=== PATIENT | female | born 1990 | race Two or more races ===

== ENCOUNTER → 2024-06-14 | Outpatient (CLI) | payer BC, SELFPAY ==
[2024-06-14 09:51] LABS: Collection Type, Urine Clean Catch
[2024-06-14 10:12] LABS: Bilirubin,Urine Negative (Negative); Blood,Urine Trace (Negative); Clarity,Urine Clear (Clear/Hazy); Color,Urine Lt-Yellow (Lt Yel-Yel); Culture Indicated,Urine Not Indicated; Glucose, Urine Negative (Negative); Ketones,Urine Negative (Negative); Leukocyte Esterase,Urine Negative (Negative); Nitrite,Urine Negative (Negative); Protein,Urine Negative (Neg - Trace); RBC,Urine 2 /hpf (0-3); Specific Gravity,Urine 1.027 (1.001-1.035); Squamous Epithelial Cell,Urine 1 /hpf (0-5); Urobilinogen,Urine Negative mg/dL (0.0-1.0); WBC,Urine 1 /hpf (0-5)
[2024-06-14 10:14] LABS: Basophils # (Auto) 0.1 Thou/mm3 (0.0-0.2); Basophils % (Auto) 1 % (0-2.5); Eosinophils # (Auto) 0.3 Thou/mm3 (0.0-0.5); Eosinophils % (Auto) 5 % (0-10); Hematocrit 40.1 % (36.0-46.0); Hemoglobin 13.5 g/dL (12.0-16.0); Immature Granulocytes % (Auto) 0 % (0-0); Immature Granulocytes Auto 0.02 Thou/mm3 (0.00-0.00); Lymphocytes # (Auto) 1.7 Thou/mm3 (1.0-4.8); Lymphocytes % (Auto) 31 % (10-50); Mean Corpuscular HGB Conc 33.7 g/dl (31.0-37.0); Mean Corpuscular Hemoglobin 29.4 pg (25.0-35.0); Mean Corpuscular Volume 87 fL (80-100); Monocytes # (Auto) 0.5 Thou/mm3 (0.0-0.8); Monocytes % (Auto) 9 % (0-12); Neutrophils % (Auto) 54 % (37-80); Nucleated Red Blood Cell % 0 /100 WBC (0); Platelet Count 298 Thou/mm3 (140-440); Red Blood Count 4.59 Miln/mm3 (4.00-5.20); White Blood Count 5.6 Thou/mm3 (3.6-11.0)
[2024-06-14 10:26] LABS: Alanine Aminotransferase 178 U/L (10-49); Albumin, Serum 4.4 gm/dL (3.5-5.0); Albumin/Globulin Ratio 2.1 (1.2-2.2); Alkaline Phosphatase 75 U/L (46-116); Anion Gap 6 (7-16); Aspartate Amino Transferase 103 U/L (0-34); BUN/Creatinine Ratio 20 Ratio (12-20); Bilirubin,Total 0.3 mg/dL (0.3-1.2); Blood Urea Nitrogen 14 mg/dL (9-23); Calcium 9.9 mg/dL (8.3-10.6); Calcium (Corrected) 9.9 mg/dL (8.5-10.1); Carbon Dioxide 28.5 mMol/L (20.0-31.0); Chloride 106 mMol/L (98-107); Creatinine (Component) 0.7 mg/dL (0.6-1.3); Free T4 (Free Thyroxine) 1.05 ng/dL (0.89-1.76); Globulin 2.1 gm/dL (2.3-3.5); Glucose 95 mg/dL (74-106); Osmolality,Calculated 279 (275-295); Phosphorous 2.9 mg/dL (2.4-5.1); Potassium 4.2 mMol/L (3.4-5.1); Sodium 140 mMol/L (136-145); Thyroid Stimulating Hormone 0.89 uIU/mL (0.55-4.78); Total Protein 6.5 gm/dL (5.7-8.2); eGFR > 60 See Note
== END | disposition home or self-care (01) ==
LOC: COPL 09:28
PROVIDERS: PCP Internal Medicine; Referring Provider Internal Medicine; Visit Provider Internal Medicine
DX: Z00.00 Encounter for general adult medical examination without abnormal findings (principal)
CPT/HCPCS: 36415; 80053; 81001; 84100; 84439; 84443; 85025

== ENCOUNTER → 2024-06-26 | Outpatient (CLI) | payer BC, SELFPAY ==
[2024-06-26 11:56] LABS: Hepatitis A Antibody IgM Non Reactive (Non React); Hepatitis B Core Antibody IgM Non Reactive (Non React); Hepatitis B Surface Antigen Non Reactive (Non React); Hepatitis C Antibody Non Reactive (Non React)
== END | disposition home or self-care (01) ==
LOC: COPL 09:03
PROVIDERS: PCP Internal Medicine; Referring Provider Internal Medicine; Visit Provider Internal Medicine
DX: R74.01 Elevation of levels of liver transaminase levels (principal)
CPT/HCPCS: 36415; 80074

== ENCOUNTER → 2024-10-01 | Outpatient (CLI) | payer BC, SELFPAY ==
[2024-10-01 11:11] LABS: Alanine Aminotransferase 31 U/L (10-49); Albumin, Serum 4.3 gm/dL (3.5-5.0); Alkaline Phosphatase 72 U/L (46-116); Aspartate Amino Transferase 18 U/L (0-34); Bilirubin,Direct < 0.1 mg/dL (0.0-0.3); Bilirubin,Total 0.2 mg/dL (0.3-1.2); Total Protein 6.5 gm/dL (5.7-8.2)
== END | disposition home or self-care (01) ==
PROVIDERS: PCP Internal Medicine; Referring Provider Internal Medicine; Visit Provider Internal Medicine
DX: E78.5 Hyperlipidemia, unspecified (principal)
CPT/HCPCS: 36415; 80076

== ENCOUNTER → 2024-11-07 | Outpatient (CLI) | payer BC, SELFPAY ==
[2024-11-09 11:20] LABS: BVAG Candida Negative (Negative); Bacterial Vaginosis Markers Negative (Negative); Candida glabrata Negative (Negative); Candida krusei PCR Negative (Negative); Trichomonas Negative (Negative)
== END | disposition home or self-care (01) ==
LOC: SLDO 15:29
PROVIDERS: PCP Physician Assistant Medical; Referring Provider Physician Assistant Medical; Visit Provider Physician Assistant Medical
DX: A59.01 Trichomonal vulvovaginitis (principal); B37.89 Other sites of candidiasis; N76.0 Acute vaginitis
CPT/HCPCS: 81514

== ENCOUNTER → 2024-11-21 | Outpatient (CLI) | payer BC, SELFPAY ==
[2024-11-21 14:03] LABS: Collection Type, Urine Clean Catch
[2024-11-21 15:41] LABS: Amphetamine/Methamp Scrn,U Negative (Negative); Barbiturate Screen,Urine Negative (Negative); Benzodiazepines Screen,Urine Negative (Negative); Benzoylecgonine Screen, Ur Negative (Negative); Fentanyl Screen,Urine Negative (Negative); Opiate Screen,Urine Negative (Negative); THC Screen,Urine Negative (Negative)
[2024-11-21 15:45] LABS: Bacteria,Urine Rare; Bilirubin,Urine Negative (Negative); Blood,Urine Negative (Negative); Clarity,Urine Clear (Clear/Hazy); Color,Urine Yellow (Lt Yel-Yel); Glucose, Urine Negative (Negative); Ketones,Urine Trace (Negative); Leukocyte Esterase,Urine Negative (Negative); Nitrite,Urine Negative (Negative); PH,Urine 5.5 (5.0-7.0); Protein,Urine Trace (Neg - Trace); RBC,Urine 1 /hpf (0-3); Specific Gravity,Urine 1.021 (1.001-1.035); Squamous Epithelial Cell,Urine 1 /hpf (0-5); Urobilinogen,Urine Negative mg/dL (0.0-1.0); WBC,Urine 2 /hpf (0-5)
== END | disposition home or self-care (01) ==
LOC: SLDO 13:45
PROVIDERS: Referring Provider Specialist; Visit Provider Specialist
DX: Z34.81 Encounter for supervision of other normal pregnancy, first trimester (principal)
CPT/HCPCS: 80307; 81001; 87086

== ENCOUNTER → 2024-11-21 | Outpatient (CLI) | payer BC, SELFPAY ==
[2024-11-21 11:21] LABS: Misc Send Out* See Sep Rpt; Quantiferon-TB* See Sep Rpt
[2024-11-21 12:17] LABS: Basophils # (Auto) 0.1 Thou/mm3 (0.0-0.2); Basophils % (Auto) 1 % (0-2.5); Eosinophils # (Auto) 0.2 Thou/mm3 (0.0-0.5); Eosinophils % (Auto) 2 % (0-10); Hematocrit 37.8 % (36.0-46.0); Hemoglobin 12.9 g/dL (12.0-16.0); Immature Granulocytes % (Auto) 0 % (0-0); Immature Granulocytes Auto 0.02 Thou/mm3 (0.00-0.00); Lymphocytes # (Auto) 1.6 Thou/mm3 (1.0-4.8); Lymphocytes % (Auto) 17 % (10-50); Mean Corpuscular HGB Conc 34.1 g/dl (31.0-37.0); Mean Corpuscular Hemoglobin 28.9 pg (25.0-35.0); Mean Corpuscular Volume 85 fL (80-100); Monocytes # (Auto) 0.5 Thou/mm3 (0.0-0.8); Monocytes % (Auto) 6 % (0-12); Neutrophils # (Auto) 6.7 Thou/mm3 (1.8-7.7); Neutrophils % (Auto) 74 % (37-80); Nucleated Red Blood Cell % 0 /100 WBC (0); Platelet Count 288 Thou/mm3 (140-440); RDW Standard Deviation 41.2 fL (36.4-46.3); Red Blood Count 4.47 Miln/mm3 (4.00-5.20); White Blood Count 9.1 Thou/mm3 (3.6-11.0)
[2024-11-21 12:38] LABS: Glucose Estimated Average 88 mg/dL (80-131); Hemoglobin A1C 4.7 % Hgb (4.8-6.0)
[2024-11-21 12:55] LABS: Hepatitis B Surface Antigen Non Reactive (Non React); Rubella, IgG Antibody Reactive (Immune)
[2024-11-21 13:03] LABS: Alanine Aminotransferase 37 U/L (10-49); Albumin, Serum 4.4 gm/dL (3.5-5.0); Albumin/Globulin Ratio 2.1 (1.2-2.2); Alkaline Phosphatase 65 U/L (46-116); Amylase 78 U/L (30-118); Anion Gap 9 (7-16); Aspartate Amino Transferase 27 U/L (0-34); BUN/Creatinine Ratio 11 Ratio (12-20); Bilirubin,Total 0.4 mg/dL (0.3-1.2); Blood Urea Nitrogen 8 mg/dL (9-23); Calcium 9.4 mg/dL (8.3-10.6); Calcium (Corrected) 9.4 mg/dL (8.5-10.1); Carbon Dioxide 24.9 mMol/L (20.0-31.0); Chloride 105 mMol/L (98-107); Creatinine (Component) 0.7 mg/dL (0.6-1.3); Globulin 2.1 gm/dL (2.3-3.5); Glucose 84 mg/dL (74-106); Lipase 34 U/L (12-53); Osmolality,Calculated 274 (275-295); Potassium 4.4 mMol/L (3.4-5.1); Sodium 139 mMol/L (136-145); Total Protein 6.5 gm/dL (5.7-8.2); eGFR > 60 See Note
[2024-11-21 13:35] LABS: Beta HCG,Quantitative 134534 mIU/mL (<5.0)
[2024-11-21 14:35] LABS: HIV (1&2) Antibody Rapid Non-Reactive
[2024-11-25 13:47] LABS: Cardiolipin Ab (IgA) <2.0 APL-U/mL; Cardiolipin Ab (IgG) <2.0 GPL-U/mL; Chenodeoxycholic Acid* <0.5 umol/L (< OR = 3.9); Cholic Acid* <0.5 umol/L (< OR = 2.8); Deoxycholic Acid* <0.5 umol/L (< OR = 2.3); HCV RNA, PCR <15 NOT DETECTED IU/mL
[2024-11-26 06:35] LABS: B2-Glycoprotein I Ab IgA <2.0 U/mL; B2-Glycoprotein I Ab IgG <2.0 U/mL; B2-Glycoprotein I Ab IgM <2.0 U/mL; Cardiolipin Ab (IgM) <2.0 MPL-U/mL; HCV RNA, PCR Log IU <1.18 NOT DETECTED Log IU/mL; HIV Ag/Ab, 4th Gen NON-REACTIVE; Total Bile Acids <1.5 umol/L (< OR = 8.3)
== END | disposition home or self-care (01) ==
LOC: COPL 10:52
PROVIDERS: PCP Internal Medicine; Referring Provider Specialist; Visit Provider Specialist
DX: Z34.81 Encounter for supervision of other normal pregnancy, first trimester (principal); R10.13 Epigastric pain
CPT/HCPCS: 36415; 80053; 82150; 83013; 83014; 83036; 83690; 83789; 84702; 85025; 85613; 85730; 86146; 86147; 86480; 86703; 86762; 86850; 86900; 86901; 87340; 87389; 87522

== ENCOUNTER → 2025-01-02 | Outpatient (CLI) | payer BC, SELFPAY ==
--- NOTE | 2025-01-02 09:59 | XR_ITS ---
Examination: Abdomen sonogram, Limited Date and time of exam: January 03, 2000 2510 0 6:00 AM INDICATIONS: Right upper abdominal pain beginning one month ago Technique: Real-time jorge scale transabdominal sonographic images of the upper abdomen obtained. Findings: Normal gallbladder Normal common bile duct 0.3 cm Pancreatic head 2.0 cm Liver 14.2 cm no liver lesions Normal hepatopedal portal venous flow Patent IVC IMPRESSION: Negative study
== END | disposition home or self-care (01) ==
PROVIDERS: PCP Internal Medicine; Referring Provider Specialist; Visit Provider Specialist
DX: R10.13 Epigastric pain (principal)
CPT/HCPCS: 76705

== ENCOUNTER → 2025-02-13 | Outpatient (CLI) | payer BC, SELFPAY | END | disposition home or self-care (01) | LOC: SLDO 14:31 | PROVIDERS: Referring Provider Physician Assistant Medical; Visit Provider Physician Assistant Medical | DX: Z34.82 Encounter for supervision of other normal pregnancy, second trimester (principal) | CPT/HCPCS: 87086 ==

== ENCOUNTER → 2025-03-14 | Outpatient (CLI) | payer BC, SELFPAY | END | disposition home or self-care (01) | LOC: SLDO 14:58 | PROVIDERS: Referring Provider Physician Assistant Medical; Visit Provider Physician Assistant Medical | DX: Z34.82 Encounter for supervision of other normal pregnancy, second trimester (principal) | CPT/HCPCS: 87086 ==

== ENCOUNTER → 2025-04-11 | Outpatient (CLI) | payer BC, SELFPAY ==
[2025-04-11 17:36] LABS: Glucose,1 Hour PP 50gm Dose 114 mg/dL (80-140)
== END | disposition home or self-care (01) ==
LOC: SLDO 15:08
PROVIDERS: PCP Physician Assistant Medical; Referring Provider Specialist; Visit Provider Specialist
DX: Z34.82 Encounter for supervision of other normal pregnancy, second trimester (principal)
CPT/HCPCS: 36415; 82950

== ENCOUNTER → 2025-05-02 | Outpatient (CLI) | payer BC, SELFPAY ==
[2025-05-02 17:01] LABS: Basophils # (Auto) 0.0 Thou/mm3 (0.0-0.2); Basophils % (Auto) 0 % (0-2.5); Eosinophils # (Auto) 0.1 Thou/mm3 (0.0-0.5); Eosinophils % (Auto) 1 % (0-10); Hematocrit 35.7 % (36.0-46.0); Hemoglobin 11.7 g/dL (12.0-16.0); Immature Granulocytes Auto 0.07 Thou/mm3 (0.00-0.00); Lymphocytes # (Auto) 1.4 Thou/mm3 (1.0-4.8); Lymphocytes % (Auto) 14 % (10-50); Mean Corpuscular HGB Conc 32.8 g/dl (31.0-37.0); Mean Corpuscular Hemoglobin 28.7 pg (25.0-35.0); Mean Corpuscular Volume 88 fL (80-100); Monocytes # (Auto) 0.6 Thou/mm3 (0.0-0.8); Monocytes % (Auto) 6 % (0-12); Neutrophils # (Auto) 8.3 Thou/mm3 (1.8-7.7); Neutrophils % (Auto) 79 % (37-80); Nucleated Red Blood Cell # 0.00 Thou/mm3 (0.00-0.00); Nucleated Red Blood Cell % 0 /100 WBC (0); Platelet Count 242 Thou/mm3 (140-440); RDW Standard Deviation 42.5 fL (36.4-46.3); Red Blood Count 4.07 Miln/mm3 (4.00-5.20); White Blood Count 10.5 Thou/mm3 (3.6-11.0)
[2025-05-02 17:24] LABS: Syphilis Nonreactive (Nonreactive)
== END | disposition home or self-care (01) ==
LOC: SLDO 15:24
PROVIDERS: Referring Provider Physician Assistant Medical; Visit Provider Physician Assistant Medical
DX: Z34.83 Encounter for supervision of other normal pregnancy, third trimester (principal)
CPT/HCPCS: 36415; 85025; 86780

== ENCOUNTER 2025-06-09 11:34 | Observation (INO) | payer BC, SELFPAY ==
[2025-06-09] VITALS (26 sets, daily range): BP systolic 129–134; BP diastolic 73–78; PULSE 72–91; RESP 18–99; TEMP 36.7; O2SAT 98–100; BMI 32.5
[2025-06-09] MEDS: RINGERS LACTATED 1000 ML 1,000 ML 999 ML IV (12:27)
[2025-06-09 12:50] LABS: Collection Type, Urine Clean Catch
[2025-06-09 13:02] LABS: Bacteria,Urine Rare; Bilirubin,Urine Negative (Negative); Blood,Urine Negative (Negative); Clarity,Urine Clear (Clear/Hazy); Color,Urine Lt-Yellow (Lt Yel-Yel); Glucose, Urine Negative (Negative); Ketones,Urine Negative (Negative); Leukocyte Esterase,Urine Negative (Negative); Nitrite,Urine Negative (Negative); PH,Urine 6.5 (5.0-7.0); Protein,Urine Negative (Neg - Trace); RBC,Urine 4 /hpf (0-3); Specific Gravity,Urine 1.025 (1.001-1.035); Squamous Epithelial Cell,Urine 1 /hpf (0-5); Urobilinogen,Urine Negative mg/dL (0.0-1.0); WBC,Urine 1 /hpf (0-5)
[2025-06-09 13:05] LABS: Basophils # (Auto) 0.0 Thou/mm3 (0.0-0.2); Basophils % (Auto) 0 % (0-2.5); Mean Corpuscular HGB Conc 33.5 g/dl (31.0-37.0); Nucleated Red Blood Cell # 0.00 Thou/mm3 (0.00-0.00); Nucleated Red Blood Cell % 0 /100 WBC (0); RDW Standard Deviation 38.0 fL (36.4-46.3)
[2025-06-09 13:26] LABS: Alanine Aminotransferase 8 U/L (10-49); Albumin, Serum 4.3 gm/dL (3.5-5.0); Albumin/Globulin Ratio 2.3 (1.2-2.2); Alkaline Phosphatase 156 U/L (46-116); Anion Gap 13 (7-16); Aspartate Amino Transferase 16 U/L (0-34); BUN/Creatinine Ratio 12 Ratio (12-20); Bilirubin,Total 0.2 mg/dL (0.3-1.2); Blood Urea Nitrogen 7 mg/dL (9-23); Calcium 8.8 mg/dL (8.3-10.6); Calcium (Corrected) 8.8 mg/dL (8.5-10.1); Carbon Dioxide 21.5 mMol/L (20.0-31.0); Chloride 106 mMol/L (98-107); Creatinine (Component) 0.6 mg/dL (0.6-1.3); Estimated Creatinine Clearance 118.8 mL/min (>60); Globulin 1.9 gm/dL (2.3-3.5); Glucose 81 mg/dL (74-106); LDH (Lactate Dehydrogenase) 173 U/L (120-246); Osmolality,Calculated 276 (275-295); Potassium 3.8 mMol/L (3.4-5.1); Sodium 140 mMol/L (136-145); Total Protein 6.2 gm/dL (5.7-8.2); Uric Acid 5.2 mg/dL (3.1-7.8); eGFR > 60 See Note
[2025-06-09 13:29] LABS: Creatinine,Random Urine 110 mg/dL (30-125); Protein Total, Random Urine 17 mg/dL (1-14)
[2025-06-09 13:30] LABS: Eosinophils # (Auto) 0.1 Thou/mm3 (0.0-0.5); Eosinophils % (Auto) 1 % (0-10); Hematocrit 35.5 % (36.0-46.0); Hemoglobin 11.9 g/dL (12.0-16.0); Immature Granulocytes Auto 0.06 Thou/mm3 (0.00-0.00); Lymphocytes # (Auto) 2.0 Thou/mm3 (1.0-4.8); Lymphocytes % (Auto) 17 % (10-50); Mean Corpuscular Hemoglobin 27.7 pg (25.0-35.0); Mean Corpuscular Volume 83 fL (80-100); Monocytes # (Auto) 0.8 Thou/mm3 (0.0-0.8); Monocytes % (Auto) 7 % (0-12); Neutrophils # (Auto) 9.0 Thou/mm3 (1.8-7.7); Neutrophils % (Auto) 75 % (37-80); Platelet Count 230 Thou/mm3 (140-440); Red Blood Count 4.30 Miln/mm3 (4.00-5.20); White Blood Count 12.1 Thou/mm3 (3.6-11.0)
[2025-06-09 13:37] LABS: INR 0.9 (0.9-1.3); Partial Thromboplastin Time 23.7 Seconds (22.0-36.0); Prothrombin Time 9.3 Seconds (9.0-12.2)
--- NOTE | 2025-06-09 13:42 | ESHP_ITS ---
RE: NARAYAN MILTON : 1990 DATE OF ADMISSION: 06/09/2025 HISTORY OF PRESENT ILLNESS: This is a 34-year-old 2, para 1-0-0-1 with due date of 07/07 with intrauterine at 36 weeks and 0 days who presents for contractions, which were seen on her non-stress test in the office today. The patient denies any headache or change in vision. She denies any right upper quadrant pain. She reports normal movement. She denies any leaking or bleeding. Contractions are seen on the non-stress test about every 3-5 minutes. She was referred to maternal unit to evaluate whether she is in early labor or false labor. She has a previous delivery and elects repeat delivery. Her prior was complicated by HELLP syndrome at 35 weeks gestation. This current has been uncomplicated. She has been on aspirin, but she has had normal blood pressures. She denies any headache, change of vision, or right upper quadrant pain. A maternal- medicine ultrasound on 05/16 showed normal anatomy, no evidence of placenta accreta spectrum, and an adequate interval growth with growth at the 47th percentile. ALLERGIES: NO KNOWN DRUG ALLERGIES. MEDICATIONS: 1. multivitamin 1 p.o. daily. 2. Aspirin 81 mg 1 p.o. daily. 3. Omeprazole 20 mg 1 p.o. daily. PAST MEDICAL HISTORY: Medullary sponge kidney, hiatal hernia with reflux, gastroesophageal reflux disease, HELLP syndrome at 35 weeks gestation in her first , advanced maternal age, and migraine headaches. SOCIAL HISTORY: She is . She denies any alcohol, drug use, or smoking. FAMILY HISTORY: Colon cancer, diabetes, hypertension, and stroke. OBSTETRIC HISTORY: 02/2017, 35 weeks, delivery, 4 pound 3 ounce male, complicated by HELLP syndrome and severe preeclampsia. PAST SURGICAL HISTORY: 2017 delivery. REVIEW OF SYSTEMS: Denies any chest pain, palpitations, cough, fever, shortness of breath, flank pain, or lower extremity pain. PHYSICAL EXAMINATION: VITAL SIGNS: Blood pressure 119/77, heart rate 88, respiration 18, temperature 98.6, weight 160 pounds. HEENT: Oropharynx and sclerae are clear. LUNGS: Clear to auscultation bilaterally. HEART: Regular rate and rhythm. ABDOMEN: Gravid, consistent with estimated weight 6 pounds. PELVIC: See RN notes. EXTREMITIES: Nontender. SKIN: No gross rashes or lesions. NEUROLOGIC: No focal deficit. ASSESSMENT: Intrauterine at 36 weeks, previous delivery, elects repeat delivery, early labor versus false labor. PLAN: IV hydration, PIH labs, monitor for cervical change. If progresses or has persistent contractions, will plan delivery. If not, she will discharge home with plan for betamethasone today and tomorrow. DT: 13::27 TT: 13:42:00 Ref: [id number] - TID: [id number]
[2025-06-09] MEDS: BETAMET ACET/BETAMET NA PH (Celestone) 6 MG/ML VIAL 12 MG IM (13:54)
[2025-06-09 13:55] LABS: Fibrinogen 637 mg/dL (175-375)
== END 2025-06-09 14:07 | disposition home or self-care (01) ==
PROVIDERS: Admitting Provider Specialist; Visit Provider Specialist
DX: O47.03 False labor before 37 completed weeks of gestation, third trimester (principal); O34.219 Maternal care for unspecified type scar from previous cesarean delivery; O09.523 Supervision of elderly multigravida, third trimester; Z3A.36 36 weeks gestation of pregnancy
CPT/HCPCS: 36415; 59025; 59899; 80053; 81001; 82570; 83615; 84156; 84550; 85025; 85384; 85610; 85730; 86850; 86900; 86901; J0702; J7120

== ENCOUNTER → 2025-06-09 | Outpatient (CLI) | payer BC, SELFPAY ==
[2025-06-10 10:44] LABS: BVAG Candida Negative (Negative); Bacterial Vaginosis Markers Negative (Negative); Candida glabrata Negative (Negative); Candida krusei PCR Negative (Negative); Trichomonas Negative (Negative)
== END | disposition home or self-care (01) ==
LOC: SLDO 15:22
PROVIDERS: Referring Provider Physician Assistant Medical; Visit Provider Physician Assistant Medical
DX: Z34.83 Encounter for supervision of other normal pregnancy, third trimester (principal)
CPT/HCPCS: 81514

== ENCOUNTER 2025-06-10 13:45 | Outpatient (CLI) | payer BC, SELFPAY ==
[2025-06-10 13:53] VITALS: BP 0/0
[2025-06-10 13:54] VITALS: BP 125/75; PULSE 96; RESP 16; TEMP 36.7; O2SAT 99
[2025-06-10 13:57] VITALS: BP 125/75; PULSE 96; RESP 16; RESP 99; TEMP 36.7; BMI 32.8
[2025-06-10] MEDS: BETAMET ACET/BETAMET NA PH (Celestone) 6 MG/ML VIAL 12 MG IM (14:35)
== END 2025-06-10 14:40 | disposition home or self-care (01) ==
LOC: S4S1 13:46 → S4SX 13:46
PROVIDERS: Referring Provider Specialist; Visit Provider Specialist
DX: Z34.83 Encounter for supervision of other normal pregnancy, third trimester (principal); Z36.9 Encounter for antenatal screening, unspecified; Z3A.36 36 weeks gestation of pregnancy
CPT/HCPCS: 59025; 96372; J0702

== ENCOUNTER → 2025-06-16 | Outpatient (CLI) | payer BC, SELFPAY | END | disposition home or self-care (01) | LOC: SLDO 14:12 | PROVIDERS: Referring Provider Physician Assistant Medical; Visit Provider Physician Assistant Medical | DX: Z34.83 Encounter for supervision of other normal pregnancy, third trimester (principal) | CPT/HCPCS: 87086 ==

== ENCOUNTER 2025-06-18 13:20 | Outpatient (AMBR) | payer BC, SELFPAY ==
--- NOTE | 2025-06-18 14:23 | LAC.VISIT ---
Assessment LAC Intervention Discharge Follow Up Appointment Date and Time: as needed LAC Education Education : Education Topic Comment: Saw patient today with questions regarding flange sizes for her pump. she is an experienced breast pumper, she exclusively pumped with her last baby due to baby being in the NICU for 10 days. She was planning on exclusively pumping for this baby as well. after some discussion found out that it was due to wanting to have dads help in feeding baby. explained that this is perfectly doable even if she is directly. stated that doing exclusive bf in the first few weeks would ensure a better milk supply and then starting to do pumping around week 2 or 3 would be overall better for baby and her. she stated she would like to do that. Discussed plan to start off with exclusive bf and then start pumping down the road. Discussed food, increasing milk supply, medications and mothers milk, flange sizes, electric pump and pumping schedule, in hospital, colostral phase. OP DC Assessment Discharge Follow Up Appointment Date and Time: as needed Visit Complete?: Yes
== END 2025-07-13 23:59 | disposition home or self-care (01) ==
LOC: HODLAC 13:20
DX: Z39.1 Encounter for care and examination of lactating mother (principal)

== ENCOUNTER 2025-06-21 23:10 | Inpatient (IN) | payer BC, SELFPAY ==
[2025-06-21] VITALS (10 sets, daily range): BP systolic 136–147; BP diastolic 87–88; PULSE 79–93; RESP 16–97; TEMP 37.2; O2SAT 97–100; BMI 32.2
[2025-06-22] VITALS (73 sets, daily range): BP systolic 118–157; BP diastolic 50–81; PULSE 30–102; RESP 16–20; TEMP 36.5–37.3; O2SAT 83–100; BMI 32.2; BMI 32.3
[2025-06-22] MEDS: RINGERS LACTATED 1000 ML 1,000 ML 999 ML IV (00:03)
[2025-06-22 00:34] LABS: Basophils # (Auto) 0.0 Thou/mm3 (0.0-0.2); Basophils % (Auto) 0 % (0-2.5); Eosinophils # (Auto) 0.1 Thou/mm3 (0.0-0.5); Eosinophils % (Auto) 1 % (0-10); Hematocrit 36.1 % (36.0-46.0); Hemoglobin 11.8 g/dL (12.0-16.0); Immature Granulocytes Auto 0.04 Thou/mm3 (0.00-0.00); Lymphocytes # (Auto) 2.4 Thou/mm3 (1.0-4.8); Lymphocytes % (Auto) 17 % (10-50); Mean Corpuscular HGB Conc 32.7 g/dl (31.0-37.0); Mean Corpuscular Hemoglobin 26.8 pg (25.0-35.0); Mean Corpuscular Volume 82 fL (80-100); Monocytes # (Auto) 0.9 Thou/mm3 (0.0-0.8); Monocytes % (Auto) 7 % (0-12); Neutrophils # (Auto) 10.3 Thou/mm3 (1.8-7.7); Neutrophils % (Auto) 75 % (37-80); Nucleated Red Blood Cell # 0.00 Thou/mm3 (0.00-0.00); Nucleated Red Blood Cell % 0 /100 WBC (0); Platelet Count 219 Thou/mm3 (140-440); RDW Standard Deviation 37.8 fL (36.4-46.3); Red Blood Count 4.41 Miln/mm3 (4.00-5.20); White Blood Count 13.7 Thou/mm3 (3.6-11.0)
[2025-06-22 01:15] LABS: Syphilis Nonreactive (Nonreactive)
--- NOTE | 2025-06-22 04:14 | PD.LDHP ---
Documentation for date of: 06/22/25 OB Labor/Induct. HPI History of Present Illness Comments: RE: NARAYAN MILTON : 1990 DATE OF ADMISSION: 06/22/2025 HISTORY OF PRESENT ILLNESS: This is a 34-year-old 2, para 0-1-0-1 with due date of 07/07 with intrauterine at 37 weeks and 6 days who presents for contractions which are persistent every 3 minutes and increasing in intensity. The patient denies any headache or change in vision. She denies any right upper quadrant pain. She reports normal movement. She denies any leaking or bleeding. The patient has a previous delivery and elects repeat delivery. Her prior was complicated by HELLP syndrome at 35 weeks gestation. This current has been uncomplicated. She has been on aspirin, but she has had normal blood pressures. She denies any headache, change of vision, or right upper quadrant pain. A maternal- medicine ultrasound on 05/16 showed normal anatomy, no evidence of placenta accreta spectrum, and an adequate interval growth with growth at the 47th percentile. ALLERGIES: NO KNOWN DRUG ALLERGIES. MEDICATIONS: 1. multivitamin 1 p.o. daily. 2. Aspirin 81 mg 1 p.o. daily. 3. Omeprazole 20 mg 1 p.o. daily. PAST MEDICAL HISTORY: Medullary sponge kidney, hiatal hernia with reflux, gastroesophageal reflux disease, HELLP syndrome at 35 weeks gestation in her first , advanced maternal age, and migraine headaches. SOCIAL HISTORY: She is . She denies any alcohol, drug use, or smoking. FAMILY HISTORY: Colon cancer, diabetes, hypertension, and stroke. OBSTETRIC HISTORY: 02/2017, 35 weeks, delivery, 4 pound 3 ounce male, complicated by HELLP syndrome and severe preeclampsia. PAST SURGICAL HISTORY: 2017 delivery. REVIEW OF SYSTEMS: Denies any chest pain, palpitations, cough, fever, shortness of breath, flank pain, or lower extremity pain. PHYSICAL EXAMINATION: VITAL SIGNS: Blood pressure 119/77, heart rate 88, respiration 18, temperature 98.6, weight 160 pounds. HEENT: Oropharynx and sclerae are clear. LUNGS: Clear to auscultation bilaterally. HEART: Regular rate and rhythm. ABDOMEN: Gravid, consistent with estimated weight 7 pounds. PELVIC: 1 cm. See RN notes. EXTREMITIES: Nontender. SKIN: No gross rashes or lesions. NEUROLOGIC: No focal deficit. ASSESSMENT: Intrauterine at 37w6d , previous delivery in early labor elects repeat delivery, multiparity desires voluntary sterilization. PLAN: Repeat C/S and BTL. Informed consent obtained patient made aware of the risks , complications, alternatives and benefits of the proposed procedure and she agrees. Aware of the failure rate and increased risk of ectopic if occurs. Note: steeping press tender Kimberly notified to prepare the patient for C/S BTL as soon as possible. There as some staffing issues and clearning the OR is required before we can proceed. Nonetheless we will proceed as soon as possible. History of Present Adequate Care: Yes Meds Home Medications and Allergies Home Medications ?Medication ?Instructions ?Recorded ?Confirmed ?Type esomeprazole magnesium 40 mg 20 mg PO BID 03/26/21 06/09/25 History capsule,delayed release norethindrone acetate 1 mg-ethinyl 1 tab PO DAILY 03/29/21 06/09/25 History estradiol 20 mcg tablet (Vicki) aspirin 81 mg tablet,delayed mg 06/09/25 History release vit no.95-ferrous tab PO 06/09/25 History fumarate 28 mg-folic acid 800 mcg tablet () Allergies Allergy/AdvReac Type Severity Reaction Status Date / Time No Known Allergies Allergy Verified 06/09/25 11:50 OB Exam Physical Exam Vital signs: Pulse BP Pulse Ox 78 144/81 H 83 L 06/22/25 03:23 06/22/25 03:23 06/22/25 04:11 OB Results Labs 06/22/25 00:00 Labs: Short CBC 06/22/25 Range/Units 00:00 WBC 13.7 H (3.6-11.0) Thou/mm3 Hgb 11.8 L (12.0-16.0) g/dL Hct 36.1 (36.0-46.0) % Plt Count 219 (140-440) Thou/mm3
[2025-06-22] MEDS: RINGERS LACTATED 1000 ML 1,000 ML 125 ML IV (05:30)
[2025-06-22] MEDS: METOCLOPRAMIDE INJ 5 MG/ML VIAL 2 ML 10 MG IVP (05:34)
[2025-06-22] MEDS: FAMOTIDINE INJ 10 MG/ML VIAL 2 ML 20 MG IV (05:35)
--- NOTE | 2025-06-22 05:47 | PD.LDDS ---
DS: Providers Provider Date of admission: 06/22/25 03:40 Primary care physician: Physician No Primary/Family Admitting Provider: Percy Jennings MD Attending Provider on Admission: Percy Jennings MD Attending Provider on DC: Percy Jennings MD Discharging Provider: Percy Jennings MD DS: Diagnosis Problem List Completed Was Problem List Reviewed/Reconciled?: Yes Summary/Hosp Course Peripartum Data Procedures: Procedures Operation Date: 06/22/25 05:45 <No data on this case meets the specified criteria> Time Spent with Patient Time attestation: Total time spent providing and/or coordinating discharge services: Exam Vital Signs Temp Pulse Resp BP Pulse Ox 98.9 F 82 16 123/73 83 L 06/21/25 23:25 06/22/25 05:23 06/21/25 23:25 06/22/25 05:23 06/22/25 04:11 Discharge Plan Plan Patient Disposition: HOME (Self Care) Patient condition on transfer: Stable Prescriptions/Referrals Prescriptions/Med Rec: New oxycodone 5 mg tablet 5 mg PO Q6H MDD 4 PRN (Reason: pain) Qty: 20 0RF Continued PNV no.95-ferrous fumarate-FA [] 28 mg iron- 800 mcg tablet PO Patient Comments: Take 1 tablet by mouth once a day Discontinued norethindrone ac-eth estradiol [Vicki 09/02 ()] 1-20 mg-mcg tablet 1 tab PO DAILY Patient Comments: take 1 tablet by mouth once daily aspirin 81 mg tablet,delayed release (DR/EC) Patient Comments: TAKE 1 TABLET BY MOUTH ONCE DAILY No Action esomeprazole magnesium 40 mg capsule,delayed release(DR/EC) 20 mg PO BID Patient Comments: take 1 capsule by mouth twice a day 30 MINUTES PRIOR TO BREAKFAST AND DINNER Referrals: No Primary/Family,Physician [Primary Care Provider] Patient/Caregiver Discharge Instructions Discharge Activity: activity as tolerated Other Discharge Activity Instructions:: Follow up office 1 week. Education Materials: C Section Dc Print Language: Slovenian Stand Alone Forms: Talita Award Info., Patient Portal Info Letter Planned Discharge Date 06/24/25
--- NOTE | 2025-06-22 05:47 | PD.GYNPROC ---
Operative Note - TANK TRUCK DRIVER Procedure Date of procedure: 06/22/25 Procedure Performed: Repeat Low Transverse Section and Bilateral Salpingectomy Indication: IUP 37w6d Early Labor Prior C/S elects repeat C/S Multiparity desires sterilization. Pre-Op diagnosis: IUP 37w6d Early Labor Prior C/S elects repeat C/S Multiparity desires sterilization. Post-Op diagnosis: IUP 37w6d Early Labor Prior C/S elects repeat C/S Multiparity desires sterilization. Anesthesia type: Spinal Procedure description: After proper informed consent was obtained and the patient was made aware of the risks, complications, alternatives and benefits of the proposed procedure she was taken to the operating room where she underwent induction of spinal anesthesia. She was prepped and draped in the usual sterile fashion. A timeout was performed.? A Pfannenstiel skin incision was made with the scalpel and carried through to the underlying layer of fascia with the Bovie. The fascia was nicked in the midline incision and the incision was extended bilaterally with the Bovie. The inferior aspect of the fascial incision was grasped with Xiang clamps elevated and the underlying rectus muscle dissected off with the Bovie. The superior aspect the fascial incision was grasped with Xiang clamps elevated and the underlying rectus muscle dissected off with the Bovie. The rectus muscles were in the midline. The peritoneum was grasped between 2 Edge clamps and entered sharply with the Metzenbaum scissors. The peritoneum was extended superiorly and inferiorly with good visualization of the bladder. The vesicouterine peritoneum was incised transversely and the bladder flap created digitally. A Ottosen blade was inserted. A low transverse incision was made in the uterus with a scapel and the incision was extended digitally. The 's head delivered and the mouth and nose were suctioned with the bulb suction. The shoulder and body delivered atraumatically. The nuchal cord was reduced. The cord was clamped after 30 second delayed cord clamping and the cord was cut.? The infant was handed off to the waiting Pediatric staff, cord blood was collected for lab testing. The placenta was removed complete and intact. The uterus was exteriorized and cleared of all clots and debris. The uterine incision was closed with #1-0 chromic catgut suture in a running interlocking fashion. A second layer of the same suture was used to imbricate the first layer and obtain excellent hemostasis. The vesicouterine peritoneum was closed with 2-0 chromic catgut suture in a running fashion. Attention was turned to the left fallopian tube which was grasped at the fimbriated end with a Ridgeway clamp and using the Enseal X-1 large jaw a left salpingectomy was performed. Hemostasis achieved. Attention was turned to the right fallopian tube which was grasped at the fimbriated end with a Hong clamp and using the Enseal X-1 large jaw a left salpingectomy was performed. Hemostasis achieved. The firm uterus was returned to the abdomen. The gutters were cleared of all clots and debris. The adnexae were revisualized along with the lower uterine segment and all was hemostatic. The peritoneum was closed with 0 chromic catgut suture in running fashion. The rectus muscle was closed with 0 chromic catgut suture. The fascia was closed with 0 Vicryl beginning at each angle and ending in the center in a running fashion. The subcutaneous tissue was irrigated with warmed normal saline solution and found to be hemostatic. The subcutaneous tissue was closed with 2-0 chromic catgut suture in a running fashion. The skin was closed with 4-0 Monocryl. A Dermabond Prineo dressing was applied and a sterile pressure dressing was applied.? She tolerated the procedure well. Counts were correct. I discussed with the patient the nature of her condition, intraoperative findings and expectation for recovery all questions answered Specimen: left tube and right tube Estimated blood loss (ml): 500 Findings: Live baby boy see RN notes Placenta removed complete and intact Clear amniotic fluid Cephalic. Uterus, ovaries and tubes wnl. Weight see RN notes Nuchal cord Complications: none Surgical staff Michelet Jennings Surgeon. Operation Date: 06/22/25 05:45 <No data on this case meets the specified criteria> Diagnosis Problem List Completed Was Problem List Reviewed/Reconciled?: Yes
[2025-06-22] MEDS: ONDANSETRON INJ 2 MG/ML INJ 2 ML 4 MG IVP (09:16)
[2025-06-22] MEDS: KETOROLAC INJ 30 MG/ML VIAL IVP ×2 (10:19→17:15)
--- NOTE | 2025-06-22 10:42 | CHAP ---
Mother and baby were visited by the Spiritual Care Volunteer who prayed for them. (Volunteer was in the hospital from 10:07-10:42)
[2025-06-22 13:06] LABS: Basophils # (Auto) 0.0 Thou/mm3 (0.0-0.2); Basophils % (Auto) 0 % (0-2.5); Eosinophils # (Auto) 0.0 Thou/mm3 (0.0-0.5); Eosinophils % (Auto) 0 % (0-10); Hematocrit 30.9 % (36.0-46.0); Hemoglobin 10.5 g/dL (12.0-16.0); Immature Granulocytes Auto 0.09 Thou/mm3 (0.00-0.00); Lymphocytes # (Auto) 1.6 Thou/mm3 (1.0-4.8); Lymphocytes % (Auto) 9 % (10-50); Mean Corpuscular HGB Conc 34.0 g/dl (31.0-37.0); Mean Corpuscular Hemoglobin 27.3 pg (25.0-35.0); Mean Corpuscular Volume 81 fL (80-100); Monocytes # (Auto) 1.0 Thou/mm3 (0.0-0.8); Monocytes % (Auto) 6 % (0-12); Neutrophils # (Auto) 14.7 Thou/mm3 (1.8-7.7); Neutrophils % (Auto) 84 % (37-80); Nucleated Red Blood Cell # 0.00 Thou/mm3 (0.00-0.00); Nucleated Red Blood Cell % 0 /100 WBC (0); Platelet Count 185 Thou/mm3 (140-440); RDW Standard Deviation 36.7 fL (36.4-46.3); Red Blood Count 3.84 Miln/mm3 (4.00-5.20); White Blood Count 17.5 Thou/mm3 (3.6-11.0)
[2025-06-22] MEDS: OXYTOCIN in NS 20 units 20 UNIT/1,000 ML BAG 125 UNIT IV (15:53)
[2025-06-23 00:30] VITALS: BP 111/72; PULSE 77; RESP 17; TEMP 36.7; O2SAT 98
[2025-06-23 05:10] VITALS: BP 123/75; PULSE 80; RESP 18; TEMP 36.9; O2SAT 98
[2025-06-23] MEDS: KETOROLAC INJ 30 MG/ML VIAL IVP (05:30)
[2025-06-23 07:30] VITALS: BP 124/82; PULSE 87; RESP 18; TEMP 36.9; O2SAT 97
--- NOTE | 2025-06-23 07:36 | ESPR_ITS ---
RE: NARAYAN MILTON : 1990 DATE OF SERVICE: 06/23/2025 SUBJECITVE: Postoperative day number 1. Patient denies any problem or complaints. She is voiding, she is ambulating, she is tolerating diet, she is passing flatus. She denies any excessive vaginal bleeding. She denies any dizziness or lightheadedness. She denies any chest pain, palpitations, shortness of breath, or lower extremity pain. OBJECTIVE: Vital Signs: Blood pressure is 123/75, heart rate 80, respirations 18, temperature is 98.5. Pulse oximetry is 98% on room air. Lungs: Clear to auscultation bilaterally. Heart: Regular rate and rhythm. Abdomen: Nondistended. Dressing dry and intact. Fundus is firm. Extremities: Nontender. LABORATORY DATA: Hemoglobin predelivery 11.8, postdelivery is 10.5. ASSESSMENT AND PLAN: She is postoperative day number 1 status post delivery and bilateral salpingectomy. Plan: Remove dressing, discontinue IV, encourage ambulation, performance consultant, possible discharge home tomorrow. DT: 07:26:11 TT: 07:34:00 Ref: [id number] - TID: [id number]
[2025-06-23] MEDS: ENOXAPARIN SOD INJ 40 MG/0.4 ML SYRINGE SC (08:09)
[2025-06-23] MEDS: DOCUSATE SOD 100 MG CAPSULE PO (08:09)
[2025-06-23 11:47] VITALS: BP 124/82; BP 139/76; PULSE 89; RESP 17; TEMP 36.8; O2SAT 99
[2025-06-23] MEDS: IBUPROFEN TAB 400 MG TABLET 800 MG PO ×2 (14:20→22:04)
[2025-06-23] MEDS: HYDROcodone/APAP 5/325 TABLET 1 TAB PO ×2 (16:22→21:39)
[2025-06-23 20:14] VITALS: BP 128/90; PULSE 93; RESP 18; TEMP 36.9; O2SAT 97
[2025-06-24 03:45] VITALS: BP 122/76; PULSE 82; RESP 16; TEMP 36.6; O2SAT 97
--- NOTE | 2025-06-24 07:44 | ESPR_ITS ---
RE: NARAYAN MILTON : 1990 DATE OF SERVICE: 06/24/2025 SUBJECTIVE: Postop day #2, patient denies any problem or complaint. She is voiding and ambulating and tolerating regular diet and passing flatus. She denies any excessive vaginal bleeding. She denies any dizziness or lightheadedness. She denies any chest pain, palpitations, shortness of breath, or lower extremity pain. OBJECTIVE: Vital Signs: Blood pressure 122/76, heart rate 82, respirations 16. Temperature is 97.8. Pulse oxygen saturation 97% on room air. Lungs: Clear to auscultation bilaterally. Heart: Regular rate and rhythm. Abdomen: Incision clear and intact, fundus is firm. Extremities: Nontender. Hemoglobin pre-delivery is 11.8, post-delivery is 10.5. ASSESSMENT: Postop day #2 status post delivery. PLAN: Discharge home. Discharge instructions given. Follow up in the office in 1 week. DT: 06:03:27 TT: 07:42:00 Ref: [id number] - TID: [id number]
[2025-06-24] MEDS: ENOXAPARIN SOD INJ 40 MG/0.4 ML SYRINGE SC (08:01)
[2025-06-24] MEDS: DOCUSATE SOD 100 MG CAPSULE PO (08:01)
[2025-06-24 09:43] VITALS: BP 137/88; PULSE 90; RESP 16; TEMP 37.2; O2SAT 98
[2025-06-24] MEDS: IBUPROFEN TAB 400 MG TABLET 800 MG PO (12:21)
[2025-06-24 13:30] VITALS: BP 128/62; PULSE 81; RESP 16; TEMP 37.1; O2SAT 98
--- NOTE | 2025-06-25 08:01 | CHAP ---
Patient was visited by a Spiritual Care Volunteer on 06/24/2025 between 1410 and 1712 and received comfort, encouragement and/or prayer.
--- NOTE | 2025-06-27 20:26 | PD.LDDELS ---
Data (Henson) Data Hx Section: Yes : 2 Term: 0 : 1 Livin Abortions: Spontaneous & Theraputic: 0 Delivery Data (Henson) Labor Data Induction/Augmentation Agent: None ROM date: 06/22/25 ROM time: 06:12 Amniotic membrane rupture type: Artificial Amniotic fluid description: Clear Delivery Data delivery date: 06/22/25 delivery time: 06:12 Placenta delivery date: 06/22/25 Placenta delivery time: 06:13 Delivered by: Percy Jennings Delivery nurse: MERRILL ALEXANDRA RN Neworn nurse: EZEKIEL TAYLOR Foot Drill Operator at delivery: No Other staff at delivery: SEE ORM NOTES. Delivery Method Delivery method: Low Transverse Presentation: Vertex Anesthesia Type Anesthesia Type: Spinal Anesthesia type: Spinal Placenta Placenta delivery description: Manual Removal Cord blood sent to lab: Yes cord blood collection: Cord Blood Type Episiotomy Episiotomy description: None Umbilical Cord cord description: 3 Vessels Data (Henson) Data order: 1 's gender: Male Identification band number: [id number] weight (gms): 6 lb 6.647 oz Weight (pounds): 6 lbs and 6.6 ozs length: 4 ft 1.5 in 1 minute: 9 5 minutes: 9
== END 2025-06-24 13:31 | disposition home or self-care (01) | DRG 785 ==
LOC: S4SX 06-22 04:51 → S4NX 06-22 05:53
PROVIDERS: Admitting Provider Specialist; Visit Provider Specialist
PROC: 10D00Z1 Extraction of Products of Conception, Low, Open Approach (ICD-10-PCS; CPT 59514; principal; 2025-06-22 05:30)
DX: O34.211 Maternal care for low transverse scar from previous cesarean delivery (principal); Z37.0 Single live birth; Z3A.37 37 weeks gestation of pregnancy; O69.81X0 Labor and delivery complicated by cord around neck, without compression, not applicable or unspecified; Z86.59 Personal history of other mental and behavioral disorders; Z30.2 Encounter for sterilization
CPT/HCPCS: 36415; 59899; 85025; 86780; 86850; 86900; 86901; A4217; A4314; A4649; J0690; J1650; J1885; J2274; J2371; J2405; J2590; J2765; J3010; J3490; J7050; J7120; A9270; J2270